=== PATIENT | female | born 1990 | race Caucasian/White ===

== ENCOUNTER → 2021-05-13 | Outpatient (CLI) | payer BC ==
--- NOTE | 2021-05-13 14:28 | RAD ---
EXAM: Neck sonogram. HISTORY: Left-sided submandibular fullness. TECHNIQUE: Sonographic imaging of the left neck at the site of reported pain was performed. COMPARISON: None. FINDINGS: There are small bilateral submandibular lymph nodes which maintain benign fatty hilum and t hin cortices. The largest of these measures 10 mm in long axis on the left. There is slight asymmetry in the thickness of the soft tissues of the left greater the right submandibular regions. No mass or cyst is seen. IMPRESSION: 1. Slight asymmetric soft tissue thickness in the left greater than right submandibular regions, with out an underlying suspicious lesion. This favors a physiologic etiology. Specifically, no mass or lym phadenopathy is seen. 2. CT or MRI may be indicated if there is continuing concern for a sonographically occult lesion. Electronically signed by: Jannet Coulter MD (05/13/2021 2:26 PM) [id number]
== END ==
LOC: US 13:48
PROVIDERS: ATTEND Physician Assistant Medical
DX: R22.1 Localized swelling, mass and lump, neck (principal)
CPT/HCPCS: 76536